=== PATIENT | female | born 1975 | race Caucasian/White ===

== ENCOUNTER 2017-07-05 12:17 | Inpatient (IN) | payer SELFPAY ==
[~2017-07-05] VITALS: Ht 165.1 cm; Wt 60.8 kg
[~2017-07-05 12:17] MED LIST: Z.0.NO CURRENT MEDS
[2017-07-05 12:23] VITALS: BP 113/71; PULSE 109; RESP 16; TEMP 98.7; O2SAT 96
--- NOTE | 2017-07-05 13:07 | PD ---
HPI Chief Complaint: Injury Time Seen by Provider: 13:03 Travel History International Travel<30 days: No Contact w/Intl Traveler<30days: No Traveled to known affect area: No History of Present Illness HPI 41-year-old female since emergency department for evaluation of right ankle pain and swelling. Patient reports early this morning around 2 AM she twisted the ankle. She reports the pain is constant, nonradiating worse with weightbearing, slightly relieved with rest. Pain scale 6/10. Patient denies falling to the ground injuring her head. PFSH Past Medical History Medical History: Denies Significant Hx Bipolar Disorder: Yes Diminished Hearing: No Musculoskeletal: Yes Psychiatric: Yes Tetanus Vaccination: Unknown Influenza Vaccination: Yes ?: Not LMP: IUD Menopausal: No : 2 Para: 2 Miscarriage: 0 : 0 Past Surgical History Joint Replacement: Yes (right hip) Social History Alcohol Use: Yes (Very occassionally socially - couple of times a year.) Tobacco Use: Yes (0.5PPD) Substance Use: Yes (hx if ETOH rarely socially;; Marijuanna if available.) Allergies-Medications (Allergen,Severity, Reaction): Coded Allergies: No Known Allergies (Verified , 07/05/17) Reported Meds & Prescriptions Reported Meds & Active Scripts Active No Active Prescriptions or Reported Medications Review of Systems Except as stated in HPI: all other systems reviewed are Neg General / Constitutional: No: Fever Eyes: No: Visual changes HENT: No: Headaches Cardiovascular: No: Chest Pain or Discomfort Respiratory: No: Shortness of Breath Gastrointestinal: No: Abdominal Pain Genitourinary: No: Dysuria Physical Exam Narrative GENERAL: Well-nourished, well-developed patient. SKIN: Focused skin assessment warm/dry. HEAD: Normocephalic. EYES: No scleral icterus. No injection or drainage. MUSCULOSKELETAL: No cyanosis. Right lower extremity: Notable swelling, tenderness, ecchymosis to the lateral medial malleolus. TTP to the base of the fifth metatarsal. Range of motion of the ankle limited due to pain. No deformity noted. Joint is stable. 2+ distal pulses. Normal sensation. Brisk cap refill. BACK: Nontender without obvious deformity. No CVA tenderness. Data Data Last Documented VS Vital Signs Date Time Temp Pulse Resp B/P (MAP) Pulse Ox O2 Delivery O2 Flow Rate FiO2 07/05/17 15:00 90 16 110/70 (83) 99 Room Air 07/05/17 12:23 98.7 Orders Orders Ankle, Complete ([id number]) (07/05/17 ) Foot, Complete ([id number]) (07/05/17 ) Morphine Inj (Morphine Inj) (07/05/17 14:15) Basic Metabolic Panel (Bmp) (07/05/17 14:40) Complete Blood Count With Diff (07/05/17 14:40) Prothrombin Time / Inr (Pt) (07/05/17 14:40) Act Partial Throm Time (Ptt) (07/05/17 14:40) Electrocardiogram (07/05/17 14:40) Splint Or Brace Apply/Monitor (07/05/17 14:40) Chest, Single Ap (07/05/17 ) Admit To Inpatient (07/05/17 ) Vital Signs (Adult) Q4H (07/05/17 15:19) Diet Regular Basic (07/05/17 Dinner) Sodium Chlor 0.45% 1000 Ml Inj (1/2 Ns 1 (07/05/17 15:19) Sodium Chloride 0.9% Flush (Ns Flush) (07/05/17 15:30) Sodium Chloride 0.9% Flush (Ns Flush) (07/05/17 21:00) Naloxone Inj (Narcan Inj) (07/05/17 15:30) Docusate Sodium-Senna (Callie-Colace) (07/05/17 21:00) Magnesium Hydroxide Liq (Milk Of Magnesi (07/05/17 15:30) Sennosides (Senokot) (07/05/17 15:30) Bisacodyl Supp (Dulcolax Supp) (07/05/17 15:30) Lactulose Liq (Lactulose Liq) (07/05/17 15:30) Morphine Inj (Morphine Inj) (07/05/17 15:30) Admit Order (Ed Use Only) (07/05/17 15:20) Labs Laboratory Tests Test 07/05/17 14:25 White Blood Count 9.5 TH/MM3 Red Blood Count 4.53 MIL/MM3 Hemoglobin 14.5 GM/DL Hematocrit 42.3 % Mean Corpuscular Volume 93.3 FL Mean Corpuscular Hemoglobin 32.0 PG Mean Corpuscular Hemoglobin Concent 34.3 % Red Cell Distribution Width 12.7 % Platelet Count 191 TH/MM3 Mean Platelet Volume 8.4 FL Neutrophils (%) (Auto) 76.0 % Lymphocytes (%) (Auto) 14.3 % Monocytes (%) (Auto) 6.7 % Eosinophils (%) (Auto) 0.7 % Basophils (%) (Auto) 2.3 % Neutrophils # (Auto) 7.2 TH/MM3 Lymphocytes # (Auto) 1.4 TH/MM3 Monocytes # (Auto) 0.6 TH/MM3 Eosinophils # (Auto) 0.1 TH/MM3 Basophils # (Auto) 0.2 TH/MM3 CBC Comment DIFF FINAL Differential Comment Prothrombin Time 10.1 SEC Prothromb Time International Ratio 0.9 RATIO Activated Partial Thromboplast Time 26.1 SEC Blood Urea Nitrogen 5 MG/DL Creatinine 0.59 MG/DL Random Glucose 82 MG/DL Calcium Level 8.7 MG/DL Sodium Level 139 MEQ/L Potassium Level 3.9 MEQ/L Chloride Level 107 MEQ/L Carbon Dioxide Level 21.3 MEQ/L Anion Gap 11 MEQ/L Estimat Glomerular Filtration Rate 112 ML/MIN MDM Medical Decision Making Medical Screen Exam Complete: Yes Emergency Medical Condition: Yes Differential Diagnosis Ankle sprain versus strain versus fracture versus metacarpal fracture Narrative Course 41-year-old female presents emergency department for evaluation of right ankle pain status post twisting injury at 2 AM. On exam patient has notable swelling , ecchymosis, tenderness to the lateral medial aspect of the right ankle. Extremities neurovascular intact. 2+ pedal pulse. No deformity. X-ray pending X-ray of right ankle and foot: Bimalleolar fracture with mild dislocation. Diagnostic studies discussed with patient and family. She agrees to admission. Posterior/stirrup fiberglass splint applied by water restoration technician. Post-splint application revealed that alignment extremity is neurovascular intact. Spoke with [facility] for on-call orthopedic Dr. Mustafa regarding patient' s x-rays. They would like patient admitted to the hospital for surgical repair tomorrow. They are requesting NPO after midnight, posterior/stirrup fiberglass splint, repeat x-ray after splint application, and admit patient to medicine. Spoke with Dr. Charles admitting doctor who agrees to admit patient to their services. Diagnosis Primary Impression: Bimalleolar fracture of right ankle Qualified Codes: S82.841A - Displaced bimalleolar fracture of right lower leg , initial encounter for closed fracture Admitting Information Admitting Physician Requests: Admit Scripts No Active Prescriptions or Reported Meds Cristel Burton Jul 05, 2017 13:07
--- NOTE | 2017-07-05 13:45 | RADRPT ---
EXAM DATE/TIME: 07/05/2017 13:17 [facility] COMPARISON: No previous studies available for comparison. INDICATIONS : Fall this am, right foot and ankle pain MEDICAL HISTORY : None. SURGICAL HISTORY : None. ENCOUNTER: Initial ACUITY: 1 day PAIN SCORE: 10/10 LOCATION: Right ankle FINDINGS: Physical fracture dislocation at the ankle involving medial malleolus and distal fibula. There is me dial displacement of the tibial plafond and the talar dome. Probable fracture posterior lip talus as well. CONCLUSION: Fracture dislocation across the ankle as described above. Minimal medial dislocations evident. Zachary Garcia MD FACR on July 05, 2017 at 13:43 Board Certified Radiologist. This report was verified electronically.
--- NOTE | 2017-07-05 13:47 | RADRPT ---
EXAM DATE/TIME: 07/05/2017 13:21 [facility] COMPARISON: No previous studies available for comparison. INDICATIONS : Fell this AM, right foot and ankle pain MEDICAL HISTORY : None. SURGICAL HISTORY : None. ENCOUNTER: Initial ACUITY: 1 day PAIN SCORE: 10/10 LOCATION: Right foot FINDINGS: Three view examination of the right foot demonstrates no soft tissue swelling, dislocation, or fractu re. The tarsal bones appear intact. The interphalangeal and metatarsophalangeal joints are intact. The calcaneus is intact. Bony mineralization is normal. CONCLUSION: Negative for fracture or dislocation. Follow up in 7-10 days is suggested if symptoms persist. Zachary Garcia MD FACR on July 05, 2017 at 13:45 Board Certified Radiologist. This report was verified electronically.
[2017-07-05] MEDS ORDERED: MORPHINE SULFATE 4 MG/ML INJ IM ONE (14:15)
[2017-07-05 15:00] VITALS: BP 110/70; PULSE 90; RESP 16; O2SAT 99
[2017-07-05] MEDS ORDERED: MAGNESIUM HYDROXIDE SUSP 30 ML CUP PO PRN (15:30)
[2017-07-05] MEDS ORDERED: SENNOSIDES 8.6 MG TAB PO PRN (15:30)
[2017-07-05] MEDS ORDERED: BISACODYL 10 MG SUPP RECTAL PRN (15:30)
[2017-07-05] MEDS ORDERED: LACTULOSE SYRUP 20 GM/30 ML CUP PO PRN (15:30)
[2017-07-05] MEDS ORDERED: NALOXONE HCL 0.4 MG/ML AMP IV PRN (15:30)
[2017-07-05 15:33] LABS: AUTOMATED NEUTROPHIL # 7.2 TH/MM3 (1.8-7.7); BASOPHIL # 0.2 TH/MM3 (0-0.2); BASOPHIL % 2.3 % (0.0-2.0); EOSINOPHIL # 0.1 TH/MM3 (0-0.4); EOSINOPHIL % 0.7 % (0.0-4.0); HEMATOCRIT 42.3 % (35.0-46.0); LYMPH % 14.3 % (9.0-44.0); LYMPHOCYTE # 1.4 TH/MM3 (1.0-4.8); MEAN CELL VOLUME 93.3 FL (80.0-100.0); MEAN CORPUSCULAR HGB CONC 34.3 % (32.0-36.0); MONO % 6.7 % (0.0-8.0); PLATELET COUNT 191 TH/MM3 (150-450); RED BLOOD COUNT 4.53 MIL/MM3 (4.00-5.30); RED CELL DISTRIBUTION WIDTH 12.7 % (11.6-17.2); WHITE BLOOD COUNT 9.5 TH/MM3 (4.0-11.0)
[2017-07-05 15:34] LABS: HEMO FLAGS DIFF FINAL
[2017-07-05] MEDS: SODIUM CHLORIDE 0.9% FLUSH 10 ML FLUSH IV FLUSH SCH (15:36)
[2017-07-05] MEDS: MORPHINE SULFATE 4 MG/ML INJ IV PUSH PRN ×3 (15:36→22:04)
[2017-07-05 15:46] LABS: POTASSIUM 3.9 MEQ/L (3.5-5.1)
[2017-07-05 15:48] LABS: BICARBONATE 21.3 MEQ/L (21.0-32.0)
[2017-07-05 15:53] LABS: APTT (PATIENT) 26.1 SEC (24.3-30.1); INTERNATIONAL NORMALIZED RATIO 0.9 RATIO; PROTHROMBIN TIME - PATIENT 10.1 SEC (9.8-11.6)
[2017-07-05 16:30] VITALS: BP 125/79; PULSE 99; RESP 16; O2SAT 100
--- NOTE | 2017-07-05 16:42 | RADRPT ---
EXAM DATE/TIME: 07/05/2017 16:24 [facility] COMPARISON: ANKLE RIGHT COMPLETE ([id number]), July 05, 2017, 13:17. INDICATIONS : Evaluate for pneumothorax, pneumonia, or other disease, pre op. right ankle fracture MEDICAL HISTORY : None. SURGICAL HISTORY : None. ENCOUNTER: Subsequent ACUITY: 1 day PAIN SCORE: 0/10 LOCATION: Bilateral chest FINDINGS: A single view of the chest demonstrates the lungs to be symmetrically aerated without evidence of mas s, infiltrate or effusion. The cardiomediastinal contours are unremarkable. Osseous structures are intact. CONCLUSION: No acute disease. Jj Valdes MD on July 05, 2017 at 16:39 Board Certified Radiologist. This report was verified electronically.
--- NOTE | 2017-07-05 16:44 | RADRPT ---
EXAM DATE/TIME: 07/05/2017 16:27 [facility] COMPARISON: ANKLE RIGHT COMPLETE ([id number]), July 05, 2017, 13:17. INDICATIONS : Post reduction right ankle MEDICAL HISTORY : None. SURGICAL HISTORY : None. ENCOUNTER: Subsequent ACUITY: 1 day PAIN SCORE: 2/10 LOCATION: Right ankle FINDINGS: AP and lateral views of the right ankle were obtained. This demonstrates casting material obscuring t he fine bony detail. Again noted is a transverse fracture through the medial malleolus. The distal fr acture fragment is displaced approximately 1 cm laterally with widening of the medial ankle mortise. There is oblique fracture through the distal fibula as well. This remains mildly displaced approximat cheli 1 cm. The alignment does not appear significantly changed from the prior study. CONCLUSION: No significant change in the alignment of the fracture fragments. Jj Valdes MD on July 05, 2017 at 16:40 Board Certified Radiologist. This report was verified electronically.
[2017-07-05] MEDS: SODIUM CHLOR 0.45% 1000 ML INJ 1,000 ML IV SCH (16:53)
[2017-07-05] MEDS: SODIUM CHLORIDE 0.9% FLUSH 10 ML FLUSH IV FLUSH PRN ×2 (16:53→17:53)
[2017-07-05 17:51] VITALS: BP 105/72; PULSE 87; RESP 16; O2SAT 96
[2017-07-05 20:25] VITALS: BP 146/99; PULSE 92; RESP 18; TEMP 98; O2SAT 96
[2017-07-05] MEDS: DOCUSATE SODIUM 50 MG/SENNA 8.6 MG TAB PO SCH (20:54)
[2017-07-06 00:11] VITALS: BP 109/72; PULSE 83; RESP 18; TEMP 96.9; O2SAT 96
[2017-07-06] MEDS: MORPHINE SULFATE 4 MG/ML INJ IV PUSH PRN ×2 (02:23→05:44)
[2017-07-06 04:08] VITALS: BP 131/77; PULSE 81; RESP 18; TEMP 96.9; O2SAT 97
[2017-07-06] MEDS ORDERED: CHLORHEXIDINE GLUCONATE 2 % 1 PACK (2 CLOTHS) TOPICAL PRN (05:15)
[2017-07-06] MEDS ORDERED: POVIDONE IODINE 5% (ANTISEPSIS KIT) 4 APPLICATIONS EACH NARE PRN (05:15)
[2017-07-06] MEDS ORDERED: INSULIN HUMAN REGULAR 1,000 UNITS/10 ML VIAL SQ PRN (05:15)
[2017-07-06] MEDS ORDERED: LACTATED RINGER'S 1000 ML IV PRN (05:15)
[2017-07-06] MEDS ORDERED: SODIUM CHLORID 0.9% 500 ML IV PRN (05:15)
[2017-07-06] MEDS: SODIUM CHLOR 0.45% 1000 ML INJ 1,000 ML IV SCH (05:48)
--- NOTE | 2017-07-06 06:43 | PD.ORT.PN ---
Subjective Subjective Remarks Injury 2 nights ago. She is down celebrating with her children. After a few drinks and the night out, she went to bed, and the next morning felt significant pain to her right ankle. She went to [place] and [facility] yesterday for x-rays which showed a bimalleolar ankle fracture. No other associated injuries Objective Vitals Vital Signs Date Time Temp Pulse Resp B/P (MAP) Pulse Ox O2 Delivery O2 Flow Rate FiO2 07/06/17 04:08 96.9 81 18 131/77 (95) 97 07/06/17 00:11 96.9 83 18 109/72 (84) 96 07/05/17 20:25 98.0 92 18 146/99 (115) 96 07/05/17 18:45 07/05/17 17:51 87 16 105/72 (83) 96 07/05/17 16:41 16 07/05/17 16:30 99 16 125/79 (94) 100 Room Air 07/05/17 15:36 16 07/05/17 15:00 90 16 110/70 (83) 99 Room Air 07/05/17 14:35 16 100 Room Air 07/05/17 12:46 16 Room Air 07/05/17 12:23 98.7 109 16 113/71 (85) 96 I/O 07/05/17 07/05/17 07/05/17 07/06/17 07/06/17 07/06/17 07:00 15:00 23:00 07:00 15:00 23:00 Intake Total 480 ml 567 ml Balance 480 ml 567 ml Intake Oral 480 ml 0 ml IV Total 567 ml # Voids 1 1 # Bowel Movements 0 0 Result Diagram: 07/05/17 1425 07/05/17 1425 Other Results Laboratory Tests Test 07/05/17 14:25 Prothromb Time International Ratio 0.9 RATIO Prothrombin Time 10.1 SEC (9.8-11.6) Imaging Last 72 hours Impressions Foot X-Ray 07/05/17 0000 Signed Impressions: Service Date/Time: Wednesday, July 05, 2017 13:21 - CONCLUSION: Negative for fracture or dislocation. Follow up in 7-10 days is suggested if symptoms persist. Zachary Garcia MD FACR Chest X-Ray 07/05/17 0000 Signed Impressions: Service Date/Time: Wednesday, July 05, 2017 16:24 - CONCLUSION: No acute disease. Jj Valdes MD Ankle X-Ray 07/05/17 0000 Signed Impressions: Service Date/Time: Wednesday, July 05, 2017 16:27 - CONCLUSION: No significant change in the alignment of the fracture fragments. Jj Valdes MD Ankle X-Ray 07/05/17 0000 Signed Impressions: Service Date/Time: Wednesday, July 05, 2017 13:17 - CONCLUSION: Fracture dislocation across the ankle as described above. Minimal medial dislocations evident. Zachary Garcia MD FACR Objective Remarks Bilateral upper extremities: Full range of motion neurovascularly intact Left lower extremity: Full range of motion and neurovascularly intact Right lower extremity: Healed incision from hip surgery. No pain with knee motion. Splint intact and intact sensation distally in all her toes. She has good capillary refills Assessment & Plan Problem List: (1) Bimalleolar fracture of right ankle ICD Codes: S82.841A - Displaced bimalleolar fracture of right lower leg, initial encounter for closed fracture Status: Acute Qualifiers: Qualified Codes: S82.841A - Displaced bimalleolar fracture of right lower leg, initial encounter for closed fracture Assessment and Plan Surgery this morning for open reduction internal fixation of right ankle. Nothing by mouth Sign consents Plan on discharge back to [facility]'s home today and travel back home to [place] tomorrow She'll be nonweightbearing on the right lower extremity and will elevate and keep splint intact Print record on CD She will need to follow-up with orthopedic at home in 2 weeks Jj Dinero Jr. Jul 06, 2017 06:43
[2017-07-06] MEDS ORDERED: HYDR-3583 PO (06:45)
[2017-07-06] MEDS ORDERED: XARE10TA PO (06:45)
[2017-07-06] MEDS ORDERED: WALKER/ADULT/FO1 MIS (06:45)
[2017-07-06] MEDS ORDERED: CALCTAB19 PO (06:45)
--- NOTE | 2017-07-06 07:55 | MB ---
cc: BARRERACONSUELO DATE OF CONSULTATION: 07/06/2017 REASON FOR CONSULTATION: Right ankle fracture. HISTORY Katelynn is a 41-year-old female who sustained injury to her right ankle. She had been drinking and does not clearly recall the injury. She woke up with right ankle pain. She presented to the emergency room where x-rays revealed displaced right ankle bimalleolar fracture. She is currently awake, alert on the orthopedic floor. Her only complaint is her right ankle. Pain is worse with movement and is improved with rest. She is visiting here from [place]. PAST MEDICAL HISTORY ILLNESSES: None SURGERIES Right hip surgery. ALLERGIES None. MEDICATIONS: None. SOCIAL HISTORY The patient drinks alcohol occasionally. She smokes half-a-pack a day. She uses occasional marijuana. REVIEW OF SYSTEMS The patient denies headache, visual changes, neck pain, chest pain, shortness of breath, abdominal pain, nausea, vomiting or recent weight loss. She complains of right ankle pain. FAMILY HISTORY Noncontributory. PHYSICAL EXAMINATION The patient is a pleasant 41 year-old female in no acute distress. She is awake, alert, oriented x3. VITAL SIGNS: Temperature 96.9, pulse 81, respirations 18, blood pressure 131/77, O2 sat 97% on room air. Head: The patient is normocephalic. Pupils are equal. Neck: Soft and nontender. Trachea is midline. Abdomen: Soft, nontender, nondistended. Extremities: Examination of bilateral upper extremities reveals no pain with shoulder, elbow or wrist motion. She has intact sensation in all fingers. She has good capillary refill in all fingers. Skin is intact. Examination of left leg reveals no pain with hip, knee or ankle motion. Skin is intact. Dorsalis pedis pulses palpable. Examination of right leg reveals no tenderness around her hip or knee. She is diffusely tender around the ankle. There is mild swelling present. Skin is intact, sensation is intact. She has good capillary refill of her foot. X-RAYS X-rays of right ankle were reviewed, x-rays reveal a displaced right ankle bimalleolar fracture. IMPRESSION Displaced right ankle bimalleolar fracture. PLAN Treatment options were discussed with the patient. At this point I recommend open reduction, internal fixation of right ankle. The risks of surgery include bleeding, infection, injury to arteries, nerves, blood vessels, nonunion, malunion, painful hardware, ankle stiffness, ankle arthritis, as well as medical complications associated with anesthesia were discussed. All questions were answered. I will plan on surgery today. A mid-level provider in my office, nurse practitioner or PA, may see this patient on a follow-up basis and continue to implement the objective of this plan including: Starting or adjusting medications, injections of muscle, tendon, bursa or joints, cast application, orthotic or brace application, physical therapy, further radiographic studies including x-ray, MRI, CT, ultrasounds or bone scan, vascular studies, neurologic studies, or other specialist consultations, and proceeding with surgical management as appropriate. MD YESSY So/ABI /6:50 AM /7:44 AM
[2017-07-06 08:00] VITALS: BP 121/81; PULSE 87; RESP 18; TEMP 97.5; O2SAT 98
[2017-07-06] MEDS ORDERED: VANCOMYCIN HCL 1000 MG VIAL ONE (08:40)
[2017-07-06] MEDS ORDERED: ceFAZolin INJ 1,000 MG VIAL ONE (08:40)
[2017-07-06] MEDS ORDERED: SODIUM CHLOR 0.9% 250 ML INJ 250 ML ONE (08:40)
[2017-07-06] MEDS ORDERED: GENTAMICIN SULFATE 80 MG/2 ML VIAL ONE (08:40)
--- NOTE | 2017-07-06 08:58 | PD.OP ---
cc: Cipriano Mustafa MD Operative Report Date of Surgery: Jul 06, 2017 Preoperative Diagnosis: Displaced right ankle bimalleolar fracture Postoperative Diagnosis: Procedure: Open reduction internal fixation right ankle Anesthesia: Gen. Surgeon: Cipriano Mustafa Orchid Worker(s): IVETTE Lockwood PA-C The surgical procedure was assisted by my physician freezer assistant. My P.A. presence was necessary throughout this case for the manipulation and positioning of the surgical extremity. My P.A. was assisting me throughout the duration of this procedure. The skill set of a physician freezer assistant was medically necessary to complete this procedure. During the surgical case the ophthalmic surgical assistant was working at the back table and the physician freezer assistant was directly assisting me. Operation and Findings: Patient was seen and evaluated preoperatively and found to have a displaced right ankle fracture. Informed consent was obtained after a detailed discussion of risk and benefits of surgery. The operative site was marked. Patient was brought to the OR, placed on the OR table, and given IV sedation and general endotracheal anesthesia. IV antibiotics were given preoperatively. A timeout procedure was performed. The right leg was prepped with alcohol followed by Hibiclens and draped in the usual sterile fashion. Attention was turned towards the distal fibula. A four-inch incision was made over the distal fibula. The subcutaneous tissue was dissected with Bovie. The fracture site was visualized. The fracture site was cleaned with curets. The fracture was now reduced. The fracture keyed into anatomic alignment. K-wires were used to h old provisional fixation. A lag screw was placed to compress fracture. A ITS plate was selected. The plate was provisionally held to bone with K-wires. 3.5 cortical screws were used to compress the plate to bone. Multiple screws were placed above and below the fracture. Next attention was turned towards the medial malleolus. The medial malleolus supposed through a 3 cm incision. Saphenous vein was retracted. Fracture was visualized. Fracture was cleaned with curettes. Fracture was now reduced and keyed into anatomic alignment. K wires were used to hold provisional fixation. Two 3.5 lag screws were placed in a retrograde fashion across the fracture. Good compression was applied. Fluoroscopy confirmed well aligned fracture with well-placed hardware. Next, attention was turned to the syndesmosis. The syndesmosis was stressed. There was widening of the syndesmosis with external rotation of the ankle. The syndesmosis was held in a reduced position with the ankle in neutral position. A 3.5 cortical screw was placed to the fibular plate across the syndesmosis and into the tibia. The syndesmosis was stressed again and found to be stable. Incisions were thoroughly irrigated. The subcutaneous tissue was closed with 3-0 Vicryl and the skin was closed with 3-0 nylon. Sterile dressings were applied. A well molded well-padded splint was applied. The patient was transferred to Recovery in stable condition. Needle and sponge counts were correct. Cipriano Mustafa MD Jul 06, 2017 08:58
[2017-07-06] MEDS: DOCUSATE SODIUM 50 MG/SENNA 8.6 MG TAB PO SCH (09:00)
[2017-07-06] MEDS ORDERED: Post-op Orders (for Pharmacy) MISC XX ONE (09:00)
[2017-07-06] MEDS: SODIUM CHLORIDE 0.9% FLUSH 10 ML FLUSH IV FLUSH SCH (09:00)
[2017-07-06] MEDS ORDERED: ONDANSETRON HCL 4 MG/2 ML VIAL IVP PRN (09:00)
--- NOTE | 2017-07-06 09:24 | EKG ---
Date Performed: 07/05/2017 Time Performed: 14:51:18 PTAGE: 41 years EKG: Sinus rhythm POSSIBLE LEFT ATRIAL ENLARGEMENT INCOMPLETE RIGHT BUNDLE BRANCH BLOCK BORDERLINE ECG NO PREVIOUS TRACING DOCTOR: Osman Garcia Interpretating Date/Time 07/06/2017 09:21:33
[2017-07-06] MEDS ORDERED: DO NOT ADM ANY ANTICOAGULANT DRUGS PRN (10:26)
--- NOTE | 2017-07-06 10:26 | RADRPT ---
EXAM DATE/TIME: 07/06/2017 09:55 [facility] COMPARISON: No previous studies available for comparison. INDICATIONS : Surgical repair of right ankle. MEDICAL HISTORY : None. SURGICAL HISTORY : None. ENCOUNTER: Initial ACUITY: 1 day PAIN SCORE: Non-responsive. LOCATION: Right ankle. FINDINGS: 4 spot intraoperative fluoroscopic views of the right ankle demonstrate lateral plate and screw fixat ion of the distal fibula and tibia and 2 screws traversing the medial malleolus. The ankle mortise is approximated. CONCLUSION: Postoperative changes. Panda Smith MD on July 06, 2017 at 10:24 Board Certified Radiologist. This report was verified electronically.
[2017-07-06] MEDS ORDERED: *diphenhydrAMINE HCL 50 MG/ML VIAL PERIprocedural Use ONLY ONE (10:35)
[2017-07-06] MEDS ORDERED: *MEPERIDINE 25 MG INJ VIAL PERIprocedural Use ONLY ONE (10:35)
[2017-07-06] MEDS ORDERED: MIDAZOLAM HCL 2 MG/2 ML VIAL ONE (10:37)
[2017-07-06 12:00] VITALS: BP 116/84; PULSE 75; RESP 18; TEMP 95.9; O2SAT 99
[2017-07-06] MEDS ORDERED: ONDANSETRON HCL 4 MG/2 ML VIAL IV PUSH ONE (12:00)
[2017-07-06] MEDS ORDERED: PROPOFOL 200 MG/20 ML AMP IV ONE (12:00)
[2017-07-06] MEDS: ACETAMINOPHEN/HYDROcodone 325 MG/7.5 MG TAB PO PRN ×3 (12:04→18:37)
[2017-07-06 15:52] VITALS: O2SAT 99
[2017-07-06 16:00] VITALS: BP 119/76; PULSE 72; RESP 18; TEMP 97; O2SAT 98
--- NOTE | 2017-07-06 16:16 | HHI.DCPOC ---
Discharge Care Plan Diagnosis: (1) Bimalleolar fracture of right ankle Goals to Promote Your Health * To prevent worsening of your condition and complications * To maintain your health at the optimal level Directions to Meet Your Goals Take your medications as prescribed Follow your dietary instruction Follow activity as directed Keep your appointments as scheduled Take your immunizations and boosters as scheduled If your symptoms worsen call your PCP, if no PCP go to Urgent Care Center or Emergency Room Smoking is Dangerous to Your Health. Avoid second hand smoke Call the 24-hour hour crisis hotline for domestic abuse at Alfred Saba MD Jul 06, 2017 16:16
[2017-07-06] MEDS ORDERED: ceFAZolin 2 GM PREMIX 50 ML IV SCH (17:00)
--- NOTE | 2017-07-06 17:33 | HHI.HP ---
HPI Service [facility] Primary Care Physician No Primary Care Physician Admission Diagnosis [facility] Diagnoses: (1) Bimalleolar fracture of right ankle Chief Complaint: Right ankle pain and swelling. Travel History International Travel<30 Days: No Contact w/Intl Traveler <30 Da: No Traveled to Known Affected Are: No History of Present Illness Written by Maryana England, acting as scribe for Dr. Tolbert on 07/06/17 at 17: 13. Ms. Orozco is a 41-year-old female patient with no known medical history who presented to the ED with complaints of right ankle pain and swelling. She states she is here on vacation from [place] to visit her daughter and noticed after going out one evening her ankle was painful and swollen. Upon awakening in the morning the pain was unbearable and swelling increased she came to the hospital. She does not recall any particular incident or injury causing the pain or swelling. Denies any loss of consciousness or fall. Denies any recent illness including fever, chills, cough, shortness of breath, headache , dizziness, abdominal pain, nausea, vomiting, diarrhea or dysuria. Patient seen and examined status post open reduction internal fixation of the right ankle by Dr. Lantigua this am. Pain well controlled. Denies any numbness or tingling to right lower extremity. Review of Systems Musculoskeletal: COMPLAINS OF: Joint pain (right ankle pain and swelling) Except as stated in HPI: all other systems reviewed are Neg Past Family Social History Past Medical History Tobacco abuse Past Surgical History Right hip replacement 2006, hip dysplasia. Reported Medications Reported Meds & Active Scripts Active Calcium 600+D 200 (Calcium Carbonate-Vitamin D) 600-200 Mg-Unit Tab 1 Tab PO BID Xarelto (Rivaroxaban) 10 Mg Tab 10 Mg PO DAILY Hydrocodone-Acetaminophen 10-325 mg Tab 1 Tab PO Q4H PRN Walker/Adult/Folding (Device) 1 Mis Mis Ea .ROUTE DIRECTED Allergies: Coded Allergies: No Known Allergies (Verified , 07/05/17) Active Ordered Medications Current Medications Medications (Trade) Dose Ordered Sig/Cristi Route Start Time Stop Time Status Last Admin Sodium Chloride 1,000 ml @ 75 mls/hr [id number] IV 07/05/17 15:19 07/06/17 05:48 (NS Flush) 2 ml UNSCH PRN IV FLUSH 07/05/17 15:30 07/05/17 17:53 (NS Flush) 2 ml BID IV FLUSH 07/05/17 21:00 07/05/17 15:36 (Narcan Inj) 0.4 mg UNSCH PRN IV 07/05/17 15:30 (Callie-Colace) 1 tab BID PO 07/05/17 21:00 07/05/17 20:54 (Milk Of Magnesia Liq) 30 ml Q12H PRN PO 07/05/17 15:30 (Senokot) 17.2 mg Q12H PRN PO 07/05/17 15:30 (Dulcolax Supp) 10 mg DAILY PRN RECTAL 07/05/17 15:30 (Lactulose Liq) 30 ml DAILY PRN PO 07/05/17 15:30 (Morphine Inj) 4 mg Q3H PRN IV PUSH 07/05/17 15:30 07/06/17 05:44 Lactated Ringer's 1,000 ml @ 30 mls/hr Q24H PRN IV 07/06/17 05:15 07/09/17 05:14 Sodium Chloride 500 ml @ 30 mls/hr [id number] PRN IV 07/06/17 05:15 07/09/17 05:14 (Betadine 5% Antisepsis Kit) 1 applic CHURN OPERATOR MARGARINE PRN EACH NARE 07/06/17 05:15 07/09/17 05:14 (Chlorhexidine 2% Cloth) 3 pack CHURN OPERATOR MARGARINE PRN TOPICAL 07/06/17 05:15 07/09/17 05:14 (NovoLIN R INJ) See Protocol Table ... CHURN OPERATOR MARGARINE PRN SQ 07/06/17 05:15 07/09/17 05:14 Cefazolin Sodium/ Dextrose 50 ml @ 100 mls/hr Q8H IV 07/06/17 17:00 07/06/17 17:29 (Zofran Inj) 4 mg Q4H PRN IVP 07/06/17 09:00 ([place] 7.5-325 Mg) 1 tab Q3H PRN PO 07/06/17 09:00 07/06/17 15:21 Miscellaneous Information ALL NURSING DEPARTME... UNSCH PRN .XX 07/06/17 10:26 07/07/17 10:25 Family History Denies any significant medical history including cardiovascular disease, lung disease or cancer. Social History Patient lives in [place]. Has grown children. Admits to smoking 1/2 ppd of cigarettes. Admits to occasional alcohol use. Denies any illicit drug use. Physical Exam Vital Signs Vital Signs Date Time Temp Pulse Resp B/P (MAP) Pulse Ox O2 Delivery O2 Flow Rate FiO2 07/06/17 15:52 99 21 07/06/17 12:00 95.9 75 18 116/84 (95) 99 07/06/17 10:59 74 15 113/71 (85) 95 Nasal Cannula 2 07/06/17 10:45 88 15 133/76 (95) 93 Nasal Cannula 2 07/06/17 10:30 97.7 99 15 127/79 (95) 94 Nasal Cannula 2 07/06/17 08:00 97.5 87 18 121/81 (94) 98 07/06/17 04:08 96.9 81 18 131/77 (95) 97 07/06/17 00:11 96.9 83 18 109/72 (84) 96 07/05/17 20:25 98.0 92 18 146/99 (115) 96 07/05/17 18:45 07/05/17 17:51 87 16 105/72 (83) 96 Physical Exam GENERAL: This is a well-nourished, well-developed patient, in no apparent distress. SKIN: No rashes, ecchymoses or lesions. Warm and dry. Right lower extremity bandage in place, clean, dry, intact. Skin warm, no numbness or tingling. HEAD: Atraumatic. Normocephalic. No temporal or scalp tenderness. EYES: Pupils equal round and reactive. Extraocular motions intact. No scleral icterus. No injection or drainage. ENT: Nose without bleeding, purulent drainage or septal hematoma. Airway patent. NECK: Trachea midline. No JVD or lymphadenopathy. Supple. CARDIOVASCULAR: Regular rate and rhythm without murmurs, gallops, or rubs. RESPIRATORY: Clear to auscultation. Breath sounds equal bilaterally. No wheezes , rales, or rhonchi. GASTROINTESTINAL: Abdomen soft, non-tender, nondistended. No guarding. MUSCULOSKELETAL: Extremities without clubbing, cyanosis, or edema. No joint tenderness, effusion, or edema noted. NEUROLOGICAL: Awake and alert. Cranial nerves II through XII intact. Motor and sensory grossly within normal limits. Five out of 5 muscle strength in all muscle groups. Normal speech. Result Diagram: 07/05/17 1425 07/05/17 1425 Imaging Last Impressions Ankle X-Ray 07/06/17 0000 Signed Impressions: Service Date/Time: Thursday, July 06, 2017 09:55 - CONCLUSION: Postoperative changes. Panda Smith MD Foot X-Ray 07/05/17 0000 Signed Impressions: Service Date/Time: Wednesday, July 05, 2017 13:21 - CONCLUSION: Negative for fracture or dislocation. Follow up in 7-10 days is suggested if symptoms persist. Zachary Garcia MD FACR Chest X-Ray 07/05/17 0000 Signed Impressions: Service Date/Time: Wednesday, July 05, 2017 16:24 - CONCLUSION: No acute disease. Jj Valdes MD [place] VTE Risk Assessment Caprini VTE Risk Assessment: Mod/High Risk (score >= 2) Caprini Risk Assessment Model Point Value = 1 Point Value = 2 Point Value = 3 Point Value = 5 Age 41-60 Minor surgery BMI > 25 kg/m2 Swollen legs Varicose veins or History of unexplained or recurrent spontaneous Oral contraceptives or hormone replacement Sepsis (< 1 month) Serious lung disease, including pneumonia (< 1 month) Abnormal pulmonary function Acute myocardial infarction Congestive heart failure (< 1 month) History of inflammatory bowel disease Medical patient at bed rest Age 61-74 Arthroscopic surgery Major open surgery (> 45 min) Laparoscopic surgery (> 45 min) Malignancy Confined to bed (> 72 hours) Immobilizing plaster cast Central venous access Age >= 75 History of VTE Family history of VTE Factor V Leiden Prothrombin [id number] Lupus anticoagulant Anticardiolipin antibodies Elevated serum homocysteine Heparin-induced thrombocytopenia Other congenital or acquired thrombophilia Stroke (< 1 month) Elective arthroplasty Hip, pelvis, or leg fracture Acute spinal cord injury (< 1 month) Prophylaxis Regimen Total Risk Factor Score Risk Level Prophylaxis Regimen 0-1 Low Early ambulation 2 Moderate Order ONE of the following: *Sequential Compression Device (SCD) *Heparin 5000 units SQ BID 3-4 Higher Order ONE of the following medications: *Heparin 5000 units SQ TID *Enoxaparin/Lovenox 40 mg SQ daily (WT < 150 kg, CrCl > 30 mL/min) *Enoxaparin/Lovenox 30 mg SQ daily (WT < 150 kg, CrCl > 10-29 mL/min) *Enoxaparin/Lovenox 30 mg SQ BID (WT < 150 kg, CrCl > 30 mL/min) AND/OR *Sequential Compression Device (SCD) 5 or more Highest Order ONE of the following medications: *Heparin 5000 units SQ TID (Preferred with Epidurals) *Enoxaparin/Lovenox 40 mg SQ daily (WT < 150 kg, CrCl > 30 mL/min) *Enoxaparin/Lovenox 30 mg SQ daily (WT < 150 kg, CrCl > 10-29 mL/min) *Enoxaparin/Lovenox 30 mg SQ BID (WT < 150 kg, CrCl > 30 mL/min) AND *Sequential Compression Device (SCD) Assessment and Plan Assessment and Plan Ms. Orozco is a 41-year-old female patient with no known medical history who presented to the ED with complaints of right ankle pain and swelling. She states she is here on vacation from [place] to visit her daughter and noticed after going out one evening her ankle was painful and swollen. Upon awakening in the morning the pain was unbearable and swelling increased she came to the hospital. Status post open reduction internal fixation of the right ankle by Dr. Lantigua today 07/06/17 - Management per ortho team. - Control pain with [place] PRN per pain scale. Morphine IV available PRN. - Encourage PO intake. - Nausea controlled. - Recommended follow up in 2 weeks in [place]. - Patient requesting records and CD of images for follow up appointment when she arrives back home. - Nonweightbearing orders for right lower extremity and elevate, keep splint intact. Tobacco abuse: Encouraged cessation. DVT Prophylaxis: Xarelto per Ortho recommendations. This note was transcribed by eran England. I, Dr. Alfred Colunga personally performed the history, physical exam, and medical decision making; and confirmed the accuracy of the information in the transcribed note. Authenticated by Dr. Alfred Colunga on 07/06/17 at 17:18. Physician Certification 2 Midnight Certification Type: Admission for Inpatient Services Order for Inpatient Services The services are ordered in accordance with Medicare regulations or non- Medicare payer requirements, as applicable. In the case of services not specified as inpatient-only, they are appropriately provided as inpatient services in accordance with the 2-midnight benchmark. Estimated LOS (days): 1 1 days is the estimated time the patient will need to remain in the hospital, assuming treatment plan goals are met and no additional complications. Post-Hospital Plan: Home Problem Qualifiers (1) Bimalleolar fracture of right ankle: Qualified Codes: S82.841A - Displaced bimalleolar fracture of right lower leg, initial encounter for closed fracture Maryana England Jul 06, 2017 17:33 Alfred Saba MD Jul 06, 2017 20:08
== END 2017-07-06 18:58 | disposition home or self-care (01) | DRG 482 ==
LOC: PHEFT 12:17 → PHEDA 15:22 → N06A 19:10
PROVIDERS: ADMIT Hospitalist; ATTEND Hospitalist
PROC: 0QSG04Z Reposition Right Tibia with Internal Fixation Device, Open Approach (ICD-10-PCS; 2017-07-06)
PROC: 0QSB04Z Reposition Right Lower Femur with Internal Fixation Device, Open Approach (ICD-10-PCS; principal; 2017-07-06 09:01)
DX: S82.841A Displaced bimalleolar fracture of right lower leg, initial encounter for closed fracture (principal); F17.210 Nicotine dependence, cigarettes, uncomplicated; F12.90 Cannabis use, unspecified, uncomplicated; X50.1XXA Overexertion from prolonged static or awkward postures, initial encounter; Z96.641 Presence of right artificial hip joint
CPT/HCPCS: 29515; 71010; 73600; 73610; 73630; 76000; 80048; 85025; 85610; 85730; 93005; 94150; 96372; C1713; J0690; J1200; J1580; J2175; J2250; J2270; J2405; J3010; J3370; J7050